=== PATIENT | female | born 1990 | race Caucasian/White ===

== ENCOUNTER 2016-12-27 21:45 | Emergency (ER) | payer MEDICAID, OTHER, SELFPAY ==
[~2016-12-27] VITALS: Ht 157.5 cm; Wt 79.4 kg
[~2016-12-27 21:45] MED LIST: ACET650T12 PO; HYDR-3713 PO; IBUP80TA PO; PRENTAB43 PO; ZANT1TAB PO; ZOFR4TAB3 PO
[2016-12-27] MEDS ORDERED: NS 1,000 ML IV ONE (23:00)
[2016-12-28] MEDS ORDERED: NITROFURANTOIN (MACROBID) 100 MG CAP PO ONE (01:30)
[2016-12-28] MEDS ORDERED: NS 1,000 ML IV ONE (01:30)
[2016-12-28 02:46] VITALS: BP 115/67
[2016-12-28] MEDS ORDERED: MACR100C3 PO (02:51)
--- NOTE | 2016-12-28 08:33 | ECGEPIP ---
Stationary ECG Study [facility] - ED Test Date: 2016-12-27 Pat Name: ODESSA GONZALEZ Department: Room: - Gender: F Financial Coach: : 1990 Requested By: Jose Elias Sandra PA-C Order Number: [id number] Reading MD: Angus Keen Measurements Intervals [place] Rate: 87 P: 41 HI: 139 QRS: 12 QRSD: 113 T: 28 QT: 362 QTc: 438 Interpretive Statements SINUS RHYTHM Electronically Signed On 12-28-2016 8:33:06 EDT by Angus Keen
== END 2016-12-28 03:05 | disposition home or self-care (01) ==
LOC: M ED 22:54
DX: O23.12 Infections of bladder in pregnancy, second trimester (principal); Z3A.15 15 weeks gestation of pregnancy; O99.212 Obesity complicating pregnancy, second trimester

== ENCOUNTER → 2017-02-03 | Outpatient (CLI) | payer MEDICAID, OTHER, SELFPAY ==
[~2017-02-03] MED LIST changes: +MACR100C3 PO
--- NOTE | 2017-02-03 16:51 | REP ---
OB ULTRASOUND: REASON: anatomy. COMPARISON: None. Multiple ultrasonographic images of the gravid uterus show a single living intrauterine gestation in the bernarda breech presentation. Doppler interrogation of the heart shows a heart rate of 149 beats per minute. The placenta is posterior and not low lying. The subjective aminotic fluid volume is within normal limits. The cervix measures 3.6 cm in length and it is closed. Evaluation of the maternal adnexal spaces showed no abnormalities. Structures visualized as unremarkable are as follows: Thalami, cavum septum pellucidum, cerebellum, cisterna magna, cerebral ventricles, spine, urinary bladder, three vessel umbilical cord, cord insertion, stomach, and upper and lower extremities. The structures suboptimally visualized are as follows: facial features, four chamber heart, ventricular outflow tracts, and kidneys. BPD 4.5 cm = 19 weeks 4 days HC 17.0 cm = 19 weeks 4 days AC 15.5 cm = 20 weeks 5 days FL 3.7 cm = 21 weeks 5 days Estimated weight is 390 grams which is at the 83rd percentile for a 20 week 0 day gestational age. IMPRESSION: Single living intrauterine gestation as described above with an estimated gestational age of 20 weeks 4 days via composite criteria and an estimated date of delivery of 03/19/2017 by today's exam. The anatomical screen was incomplete as described. Followup is recommended. Signed by Chuck Thorpe DO 02/03/2017 05:13 P
== END ==
LOC: M RAD 10:25
PROVIDERS: ATTEND Nurse Practitioner Women's Health
DX: O32.1XX0 Maternal care for breech presentation, not applicable or unspecified (principal); Z36 Encounter for antenatal screening of mother; Z3A.20 20 weeks gestation of pregnancy

== ENCOUNTER → 2017-03-04 | Outpatient (CLI) | payer MEDICAID, OTHER ==
--- NOTE | 2017-03-05 07:47 | REP ---
Clinical: Anatomical evaluation. Comparison: 02/03/2017 . Findings: Examination demonstrates a single live intrauterine in transverse (head to maternal right) presentation. motion is identified by technologist. Placenta is noted posteriorly and grade zero without evidence for placenta previa or abruption. Amniotic fluid volume is normal. Cervix measures 3.6 cm in length and appears closed. Nuchal cord cannot be excluded. Gestational age by LMP 24 weeks 1 day with HUY 06/23/2017 . Gestational age by current measurements 24 weeks 1 day with HUY 06/23/2017 . FHR equals 132 beats per minute. Estimated weight 753 grams ( 70th percentile). Anatomical assessment demonstrates normal structures including cranium, choroid plexus, cavum, cerebellum/posterior fossa, facial profile, lungs, four-chamber heart/ventricular outflow tracts, diaphragm, stomach, three-vessel cord, kidneys/bladder, and spine. Impression: 1. Single live intrauterine in transverse lie demonstrating appropriate interval growth. 2. Limited evaluation of the facial nose/lips. Remainder of the anatomical assessment in conjunction with prior examination is complete and normal. Signed by Dale Sosa MD 03/05/2017 07:38 A
== END ==
LOC: M RAD 10:10
PROVIDERS: ATTEND Nurse Practitioner Women's Health
DX: Z34.92 Encounter for supervision of normal pregnancy, unspecified, second trimester (principal); Z36 Encounter for antenatal screening of mother; Z3A.24 24 weeks gestation of pregnancy

== ENCOUNTER → 2017-04-28 | Outpatient (CLI) | payer OTHER ==
[~2017-04-28] MED LIST changes: +CEFD1CAP8 PO; -MACR100C3 PO; +MACR100C43 PO; +TYLE500T78 PO
== END ==
LOC: M LAB 07:58
PROVIDERS: ATTEND Nurse Practitioner Women's Health
DX: O99.810 Abnormal glucose complicating pregnancy (principal); Z36 Encounter for antenatal screening of mother; Z3A.00 Weeks of gestation of pregnancy not specified

== ENCOUNTER 2017-05-18 16:50 | Emergency (ER) | payer OTHER ==
[~2017-05-18] VITALS: Ht 157.5 cm; Wt 94.5 kg
[~2017-05-18 16:50] MED LIST changes: -CEFD1CAP8 PO; -TYLE500T78 PO
[2017-05-18] MEDS ORDERED: TYLE500T78 PO (17:09)
[2017-05-18] MEDS ORDERED: CEFD1CAP8 PO (17:09)
[2017-05-18] MEDS ORDERED: ANEXSIA, NORCO 7.5MG/325MG TABLET(HYDROCODONE/APAP) PO ONE (18:30)
[2017-05-18] MEDS ORDERED: LIDOCAINE W/EPINEPHRINE 1% 20ML VIAL SC ONE (18:30)
[2017-05-18] MEDS ORDERED: NORCO 5/325MG TABLET (BULK FOR ED) PO ONE (19:15)
[2017-05-18 19:17] VITALS: BP 134/75
== END 2017-05-18 19:33 | disposition home or self-care (01) ==
LOC: EEVIPCON 16:50 → M ED 16:50
DX: O99.89 Other specified diseases and conditions complicating pregnancy, childbirth and the puerperium (principal); L02.212 Cutaneous abscess of back [any part, except buttock and flank]; Z3A.35 35 weeks gestation of pregnancy

== ENCOUNTER 2017-10-03 04:34 | Emergency (ER) | payer OTHER ==
[2017-10-03] MEDS: ONDANSETRON 4 MG ORAL DISINTEGRATING TAB (S0181) PO (07:12)
[2017-10-03] MEDS: KETOROLAC 60 MG/2 ML VIAL (J1885) IM (07:16)
== END 2017-10-03 09:00 | disposition home or self-care (01) ==
LOC: M ED 04:34
DX: B34.9 Viral infection, unspecified (principal); K21.9 Gastro-esophageal reflux disease without esophagitis; F33.9 Major depressive disorder, recurrent, unspecified; Z87.19 Personal history of other diseases of the digestive system; Z79.899 Other long term (current) drug therapy
CPT/HCPCS: J1885

== ENCOUNTER → 2018-02-25 | Outpatient (CLI) | payer OTHER ==
[2018-02-25 10:17] LABS: HEMATOCRIT 39.5 % (36.0-47.0); HEMOGLOBIN 13.1 g/dl (12.0-15.5); MEAN CORPUSCULAR HEMOGLOBIN 27.8 pg (27.0-33.0); MEAN CORPUSCULAR HGB CONC 33.2 g/dl (32.0-36.5); MEAN CORPUSCULAR VOLUME 83.9 fl (80.0-96.0); PLATELET COUNT, AUTOMATED 301 10^3/uL (150-450); RED BLOOD COUNT 4.71 10^6/uL (4.00-5.40); RED CELL DISTRIBUTION WIDTH 12.2 % (11.5-14.5); WHITE BLOOD COUNT 6.6 10^3/uL (4.0-10.0)
[2018-02-25 11:00] LABS: ALBUMIN 3.9 GM/DL (3.2-5.2); ALBUMIN/GLOBULIN RATIO 1.15 (1.00-1.93); ALKALINE PHOSPHATASE 65 U/L (45-117); ALT/SGPT 21 U/L (12-78); ANION GAP 7 MEQ/L (8-16); AST/SGOT 9 U/L (7-37); BILIRUBIN,TOTAL 0.2 MG/DL (0.2-1.0); BLOOD UREA NITROGEN 9 MG/DL (7-18); CALCIUM LEVEL 8.6 MG/DL (8.5-10.1); CARBON DIOXIDE LEVEL 28 MEQ/L (21-32); CHLORIDE LEVEL 109 MEQ/L (98-107); CHOLESTEROL LEVEL 125 MG/DL (<200); CHOLESTEROL RISK RATIO 3.125 (<5); CREATININE FOR GFR 0.88 MG/DL (0.55-1.30); GLOMERULAR FILTRATION RATE > 60.0 (>60); GLUCOSE, FASTING 98 MG/DL (70-100); HDL CHOLESTEROL 40 MG/DL (>40); IRON (FE) 37 UG/DL (50-170); LDL CHOLESTEROL 52.4 MG/DL (<100); NON-HDL-C 85 MG/DL; PERCENT SATURATION 9.8 % (13.2-45.0); SODIUM LEVEL 144 MEQ/L (136-145); THYROID STIMULATING HORMONE 0.937 uIU/ML (0.358-3.740); TOTAL IRON BINDING CAPACITY 376 UG/DL (250-450); TOTAL PROTEIN 7.3 GM/DL (6.4-8.2); TRIGLYCERIDES LEVEL 163 MG/DL (<150)
[2018-02-25 11:13] LABS: VITAMIN B12 LEVEL 331 PG/ML (247-911)
[2018-02-25 11:21] LABS: TOTAL 25(OH) VITAMIN D 20.8 NG/ML (30.0-100.0)
== END ==
LOC: M LAB 09:31
DX: I49.9 Cardiac arrhythmia, unspecified (principal); D64.9 Anemia, unspecified; R53.83 Other fatigue; E03.9 Hypothyroidism, unspecified
CPT/HCPCS: 71046